=== PATIENT | male | born 1965 | race Asian ===

== ENCOUNTER → 2016-12-07 | Outpatient (CLI) | payer OTHER ==
--- NOTE | 2016-12-07 18:36 | DX ---
Left Ankle Series, Three Views History: Postoperative follow up; comparison April 25, 2016. Findings: The plate and multiple screws transfixing the lateral malleolus have been removed. The fi bular fracture appears healed. The ankle mortise is not widened. The talar dome appears normal. No postoperative complication is seen. Impression: No complication following hardware removal, with findings as detailed above.
== END ==
LOC: BMCIMAGING 14:22
PROVIDERS: ATTEND Podiatrist Foot & Ankle Surgery
DX: Z47.89 Encounter for other orthopedic aftercare (principal); S82.62XD Displaced fracture of lateral malleolus of left fibula, subsequent encounter for closed fracture with routine healing